=== PATIENT | female | born 1965 | race Hispanic/Latino ===

== ENCOUNTER 2019-08-07 10:38 | Inpatient (IN) | payer SELFPAY ==
[~2019-08-07] VITALS: Ht 157.5 cm; Wt 68.6 kg
[2019-08-07 11:19] LABS: BASOPHILS % (AUTO) 0.5 % (0.0-5.0); EOSINOPHILS % (AUTO) 1.2 % (0.0-8.0); HEMATOCRIT 41.2 % (36-48); LYMPHOCYTES % (AUTO) 37.6 % (21.0-51.0); MEAN CORPUSCULAR HGB CONC 31.8 g/dL (32.0-36.0); MEAN CORPUSCULAR VOLUME 84.9 fL (79-99); MONOCYTES % (AUTO) 6.3 % (3.0-13.0); NEUTROPHILS % (AUTO) 54.2 % (40.0-77.0); PLATELET COUNT (AUTO) 350 K/uL (130-400); RED BLOOD CELL COUNT(AUTO) 4.85 MIL/uL (4.00-5.50); RED CELL DISTRIBUTION WIDTH 18.5 % (11.0-15.5); WHITE BLOOD COUNT (AUTO) 5.7 K/uL (4.8-10.8)
[2019-08-07 11:24] LABS: CREATININE 0.7 mg/dL (0.5-1.5); POTASSIUM 3.7 mmol/L (3.5-5.1)
[2019-08-07 11:29] LABS: INR 0.95 (0.85-1.15); PARTIAL THROMBOPLASTIN TIME 28.9 SEC (26.3-35.5)
[2019-08-07 11:30] LABS: ALBUMIN 3.7 g/dL (3.5-5.0); BILIRUBIN,TOTAL 0.2 mg/dL (0.2-1.0); TOTAL PROTEIN, SERUM 7.9 g/dL (6.0-8.3)
[2019-08-07] MEDS ORDERED: SODIUM CHLORIDE 0.9% 1000ML 1,000 ML IV ONE ×2 (12:23→17:51)
[2019-08-07] MEDS ORDERED: ONDANSETRON HCL 4 MG/2 ML VIAL ONE (12:23)
[2019-08-07] MEDS ORDERED: MORPHINE SULFATE 4 MG/1ML SYG ONE (12:23)
[2019-08-07] MEDS ORDERED: MEPERIDINE-PF 25 MG/ML SYG ONE (14:05)
[2019-08-07] MEDS ORDERED: SODIUM CHLORIDE 0.9% 100 ML IV ONE (14:39)
[2019-08-07] MEDS: SODIUM CHLORIDE 0.9% 1000ML 1,000 ML IV SCH (16:30)
[2019-08-07] MEDS ORDERED: ACETAMINOPHEN 325 MG TAB PO PRN (16:30)
[2019-08-07] MEDS ORDERED: MORPHINE SULFATE 2 MG/ML 1ML SYG IVP PRN (16:30)
[2019-08-07] MEDS: PANTOPRAZOLE SODIUM 40 MG TABLET.DR PO SCH ×2 (17:00→21:00)
[2019-08-07 17:25] LABS: % IRON SATURATION 30.3 % (22-44)
[2019-08-07] MEDS ORDERED: ACETAMINOPHEN 325 MG TAB ONE (18:52)
[2019-08-07] MEDS ORDERED: LEVETIRACETAM 500 MG TABLET PO ONE (21:37)
[2019-08-07 21:57] LABS: APPEARANCE,URINE Cloudy (CLEAR); BILIRUBIN,URINE Negative (NEGATIVE); COLOR,URINE Dark Yellow (YELLOW); GLUCOSE, URINE (UA) Negative (NEGATIVE); KETONES,URINE Trace mg/dL (NEGATIVE); LEUKOCYTE ESTERASE ,URINE Trace (NEGATIVE); NITRATE,URINE Negative (NEGATIVE); OCCULT BLOOD,URINE Negative (NEGATIVE); PROTEIN,URINE Negative (NEGATIVE)
[2019-08-07 22:13] LABS: BACTERIA,URINE Few /HPF (None Seen); MUCUS,URINE Few LPF (None Seen); RBC,URINE 0-1 /HPF (0-1); SQUAMOUS EPITHELIAL CELL,UR 0-2 /HPF (0-2); WBC,URINE 0-1 /HPF (0-1)
[2019-08-07] MEDS ORDERED: MORPHINE SULFATE 2 MG/ML 1ML SYG ONE (23:06)
[2019-08-07 23:34] VITALS: BP 123/59
[2019-08-08] VITALS (7 sets, daily range): BP systolic 100–127; BP diastolic 58–78
--- NOTE | 2019-08-08 00:13 | NUR ---
PATIENT RECEIVED FROM ER, REPORT FROM MEENU HUSAIN. PATIENT WITH C/O SEVERE ABDOMINAL PAIN FOR 3 MONTHS. STATES SHE WAS TO F/U WITH [employer] BUT PAIN GOT GRADUALLY WORSE AND CAME TO E.R. DX CHOLELITHIASIS: PATIENT IS AAOX3, NO ACUTE DISTRESS AT THIS TIME. SHE RECEIVED MORPHINE 2 MG IV PRIOR TO ARRIVING TO FLOOR. PATIENT IS TO HAVE HIDA SCAN IN AM AND SHE IS AWARE OF NO NARCOTICS FOR AT LEAST 6 HOURS. PATIENT ORIENTED TO ROOM AND ENVIRONMENT, ADMISSION COMPLETED AND ASSESSMENT RECORDED. PATIENT IS TO REMAIN NPO. DR. THOMAS TO BE NOTIFIED TOMORROW IN AM [facility] CONSULT.
[2019-08-08] MEDS: SODIUM CHLORIDE 0.9% 1000ML 1,000 ML IV SCH ×2 (02:30→22:30)
[2019-08-08] MEDS: PANTOPRAZOLE SODIUM 40 MG TABLET.DR PO SCH ×2 (11:08→20:57)
[2019-08-08] MEDS: ONDANSETRON HCL 4 MG/2 ML VIAL IVP PRN ×2 (11:09→21:02)
[2019-08-08] MEDS: MORPHINE SULFATE 4 MG/1ML SYG IV PRN ×2 (11:09→18:06)
[2019-08-08] MEDS ORDERED: LEVE500T9 PO (16:51)
[2019-08-08] MEDS ORDERED: DULO20 PO (16:51)
[2019-08-08] MEDS ORDERED: LISI30TA4 PO (16:51)
[2019-08-08] MEDS ORDERED: FERS325 PO (16:51)
[2019-08-08] MEDS ORDERED: GABA-533 PO (16:51)
[2019-08-08] MEDS ORDERED: ZOLP5TAB8 PO (16:51)
--- NOTE | 2019-08-08 17:39 | NUR ---
TRANSFER REPORT CALLED TO [facility]; PT STATED UNDERSTANDING OF NEED TO TRANSFER; SHE SIGNED HER CONSENT PRIOR TO TRANSFER AND I SPOKE TO DR LEPE AND GOT ORDERS TO RESUME HOME MEDICATIONS
[2019-08-08] MEDS: FERROUS SULFATE 325 MG TABLET.DR PO SCH (20:57)
[2019-08-08] MEDS: ZOLPIDEM TARTRATE 5 MG TAB PO SCH (20:58)
[2019-08-08] MEDS: LEVETIRACETAM 500 MG PO SCH (20:58)
[2019-08-09] VITALS (25 sets, daily range): BP systolic 99–159; BP diastolic 56–92
[2019-08-09] MEDS: MORPHINE SULFATE 4 MG/1ML SYG IV PRN ×4 (01:46→22:09)
[2019-08-09] MEDS: KETOROLAC TROMETHAMINE 30MG/ML IV PRN ×3 (04:22→19:50)
[2019-08-09 04:36] LABS: BASOPHILS % (AUTO) 0.6 % (0.0-5.0); EOSINOPHILS % (AUTO) 2.2 % (0.0-8.0); HEMATOCRIT 37.8 % (36-48); LYMPHOCYTES % (AUTO) 38.1 % (21.0-51.0); MEAN CORPUSCULAR HEMOGLOBIN 27.3 pg (27.0-33.0); MEAN CORPUSCULAR VOLUME 88.3 fL (79-99); MONOCYTES % (AUTO) 6.4 % (3.0-13.0); NEUTROPHILS % (AUTO) 52.4 % (40.0-77.0); PLATELET COUNT (AUTO) 321 K/uL (130-400); RED BLOOD CELL COUNT(AUTO) 4.28 MIL/uL (4.00-5.50); RED CELL DISTRIBUTION WIDTH 18.4 % (11.0-15.5); WHITE BLOOD COUNT (AUTO) 6.4 K/uL (4.8-10.8)
[2019-08-09 04:42] LABS: CREATININE 0.6 mg/dL (0.5-1.5); MAGNESIUM 1.9 mg/dL (1.80-2.40); POTASSIUM 4.1 mmol/L (3.5-5.1)
[2019-08-09] MEDS: SODIUM CHLORIDE 0.9% 1000ML 1,000 ML IV SCH ×2 (06:39→19:50)
[2019-08-09] MEDS: LISINOPRIL 10 MG TABLET PO SCH (08:17)
[2019-08-09] MEDS: LEVETIRACETAM 500 MG PO SCH ×2 (08:18→21:12)
[2019-08-09] MEDS: ENOXAPARIN SODIUM 40 MG/0.4 ML SYRINGE SQ SCH (09:00)
[2019-08-09] MEDS: PANTOPRAZOLE SODIUM 40 MG TABLET.DR PO SCH ×2 (09:00→20:51)
[2019-08-09] MEDS: FERROUS SULFATE 325 MG TABLET.DR PO SCH ×3 (09:00→20:51)
--- NOTE | 2019-08-09 12:55 | NUR ---
PATIENT WAS TAKEN VIA BED TO PACU BY RODRIGUE ADAME AND ANOTHER NURSE FROM PACU. PATIENT STABLE BUT C/O STILL HAVING PAIN.
[2019-08-09] MEDS ORDERED: PROPOFOL 10 MG/ML 20ML VIAL IV ONE (13:17)
[2019-08-09] MEDS ORDERED: METOCLOPRAMIDE 10 MG/2 ML VIAL ONE (13:17)
[2019-08-09] MEDS ORDERED: ROCURONIUM 10MG/1ML SYR 10 MG/ML ML ONE (13:17)
[2019-08-09] MEDS ORDERED: MIDAZOLAM HCL 1 MG/ML 2ML VIAL ONE (13:17)
[2019-08-09] MEDS ORDERED: LIDOCAINE PF 2% 5ML ABBOJECT ONE (13:17)
[2019-08-09] MEDS ORDERED: FENTANYL CITRATE PF 50 MCG/1 ML 2ML VIAL ONE ×4 (13:18→15:49)
[2019-08-09] MEDS ORDERED: BUPIVACAINE/PF 0.5% 30ML VIAL ONE (13:32)
[2019-08-09] MEDS ORDERED: MEPERIDINE-PF 25 MG/ML SYG ONE ×2 (14:40→14:44)
[2019-08-09] MEDS: ONDANSETRON HCL 4 MG/2 ML VIAL IVP PRN (15:00)
--- NOTE | 2019-08-09 16:25 | NUR ---
PATIENT BACK FROM PACU AND IS STABLE. ON ASSESSMENT NOTED PATIENT HAD O2 AT 2L PER NC AND 4 BANDAIDS TO INCISIONAL SITESON ABDOMEN. BANDAIDS ARE DRY AND INTACT AND 02 WAS REMOVED BY PATIENT'S REQUEST AND ALSO NEEDING TO GO TO BATHROOM TO VOID. AFTER ASSESSMENT ASSISTED PT TO BATHROOM AND WAS ABLE TO VOID 300CC OF CLEAR YELLOW URINE.
[2019-08-09] MEDS: GABAPENTIN 100 MG CAPSULE PO SCH (17:06)
--- NOTE | 2019-08-09 19:15 | NUR ---
REPORT GIVEN TO RODRIGUE OLIVER AND PATIENT CARE TRANSFERED AT THIS TIME. PATIENT IS STABLE.
[2019-08-09] MEDS: ZOLPIDEM TARTRATE 5 MG TAB PO SCH (20:51)
[2019-08-09] MEDS: CEFTRIAXONE SODIUM 1 GM IVP SCH (21:10)
[2019-08-09 21:18] LABS: BILIRUBIN,URINE Negative (NEGATIVE); COLOR,URINE Yellow (YELLOW); GLUCOSE, URINE (UA) >=1000 mg/dL (NEGATIVE); KETONES,URINE Negative (NEGATIVE); LEUKOCYTE ESTERASE ,URINE Negative (NEGATIVE); NITRATE,URINE Negative (NEGATIVE); OCCULT BLOOD,URINE Negative (NEGATIVE); PH,URINE 6.5 (5.0-8.0); PROTEIN,URINE Negative (NEGATIVE)
[2019-08-09 21:19] LABS: APPEARANCE,URINE CLEAR (CLEAR)
[2019-08-09 21:53] LABS: RBC,URINE 0-1 /HPF (0-1); WBC,URINE 0-1 /HPF (0-1)
[2019-08-09 21:54] LABS: BACTERIA,URINE None Seen /HPF (None Seen); SQUAMOUS EPITHELIAL CELL,UR None Seen /HPF (0-2)
[2019-08-10] VITALS (12 sets, daily range): BP systolic 100–150; BP diastolic 34–71
[2019-08-10] MEDS: KETOROLAC TROMETHAMINE 30MG/ML IV PRN ×3 (02:42→17:54)
[2019-08-10 04:57] LABS: HEMATOCRIT 33.5 % (36-48); MEAN CORPUSCULAR HEMOGLOBIN 27.3 pg (27.0-33.0); MEAN CORPUSCULAR HGB CONC 31.6 g/dL (32.0-36.0); MEAN CORPUSCULAR VOLUME 86.3 fL (79-99); PLATELET COUNT (AUTO) 258 K/uL (130-400); RED BLOOD CELL COUNT(AUTO) 3.88 MIL/uL (4.00-5.50); RED CELL DISTRIBUTION WIDTH 17.6 % (11.0-15.5); WHITE BLOOD COUNT (AUTO) 10.1 K/uL (4.8-10.8)
[2019-08-10 05:37] LABS: ALBUMIN 2.7 g/dL (3.5-5.0); BILIRUBIN,TOTAL 0.2 mg/dL (0.2-1.0); CREATININE 0.8 mg/dL (0.5-1.5); POTASSIUM 3.5 mmol/L (3.5-5.1); TOTAL PROTEIN, SERUM 6.4 g/dL (6.0-8.3)
[2019-08-10] MEDS: MORPHINE SULFATE 4 MG/1ML SYG IV PRN ×2 (05:57→12:24)
[2019-08-10] MEDS: SODIUM CHLORIDE 0.9% 1000ML 1,000 ML IV SCH ×2 (05:58→16:44)
[2019-08-10] MEDS: LEVETIRACETAM 500 MG PO SCH ×2 (09:00→21:27)
[2019-08-10] MEDS: ENOXAPARIN SODIUM 40 MG/0.4 ML SYRINGE SQ SCH (09:38)
[2019-08-10] MEDS: GABAPENTIN 100 MG CAPSULE PO SCH (09:39)
[2019-08-10] MEDS: LISINOPRIL 10 MG TABLET PO SCH (09:39)
[2019-08-10] MEDS: FERROUS SULFATE 325 MG TABLET.DR PO SCH ×3 (09:39→21:24)
[2019-08-10] MEDS: PANTOPRAZOLE SODIUM 40 MG TABLET.DR PO SCH ×2 (09:39→21:24)
[2019-08-10] MEDS: DOCUSATE SODIUM 100 MG CAP PO SCH ×2 (10:38→21:24)
[2019-08-10] MEDS: SIMETHICONE 80 MG TAB.CHEW PO PRN ×2 (10:38→21:24)
[2019-08-10] MEDS: SENNOSIDES 8.6 MG TABLET PO SCH ×2 (10:38→21:43)
[2019-08-10] MEDS ORDERED: BISACODYL 10 MG SUPP.RECT RC PRN (15:00)
--- NOTE | 2019-08-10 18:10 | NUR ---
pt is cleared to go home as per Dr. Rg- surgeon, and hospitalist . Started giving discharge instructions, and informed and no prescription was given for her, pt started crying and she said she is still in a lot of pain, and not comfortable going home. Notified MANAGER LSW radha and ordered to cancel discharge Addendum: 08/10/19 at 1937 by LUIS WILCOX RN Amended: Links added.
[2019-08-10 18:35] LABS: ALBUMIN 3.2 g/dL (3.5-5.0); BILIRUBIN,DIRECT 0.1 mg/dL (0.0-0.3); BILIRUBIN,TOTAL 0.3 mg/dL (0.2-1.0); TOTAL PROTEIN, SERUM 7.3 g/dL (6.0-8.3)
[2019-08-10] MEDS ORDERED: TRAMADOL HCL 50 MG TABLET PO PRN (19:15)
[2019-08-10] MEDS: CEFTRIAXONE SODIUM 1 GM IVP SCH (21:21)
[2019-08-10] MEDS: ZOLPIDEM TARTRATE 5 MG TAB PO SCH (21:24)
[2019-08-10] MEDS: TRAMADOL HCL 50 MG TABLET PO PRN (21:26)
--- NOTE | 2019-08-10 23:45 | NUR ---
Communication: Ly Gold NP called to verify the Discharges order received order patient can stay tonight to transition IV pain medication to pills.
[2019-08-11] MEDS: SODIUM CHLORIDE 0.9% 1000ML 1,000 ML IV SCH (02:47)
[2019-08-11 03:26] VITALS: BP 110/69
[2019-08-11] MEDS: TRAMADOL HCL 50 MG TABLET PO PRN (06:11)
[2019-08-11 07:25] VITALS: BP 107/64
[2019-08-11] MEDS: PANTOPRAZOLE SODIUM 40 MG TABLET.DR PO SCH (08:38)
[2019-08-11] MEDS: GABAPENTIN 100 MG CAPSULE PO SCH (08:38)
[2019-08-11] MEDS: LISINOPRIL 10 MG TABLET PO SCH ×2 (08:39→08:47)
[2019-08-11] MEDS: SENNOSIDES 8.6 MG TABLET PO SCH (08:39)
[2019-08-11] MEDS: DOCUSATE SODIUM 100 MG CAP PO SCH (08:40)
[2019-08-11] MEDS: LEVETIRACETAM 500 MG PO SCH (08:41)
[2019-08-11] MEDS: FERROUS SULFATE 325 MG TABLET.DR PO SCH (08:41)
[2019-08-11] MEDS: ENOXAPARIN SODIUM 40 MG/0.4 ML SYRINGE SQ SCH (08:57)
--- NOTE | 2019-08-11 09:50 | NUR ---
ROUNDING SOFIA PUTNAM NP AT BEDSIDE TO ASSESS AND TALK TO PT. NEW ORDERS RECEIVED FOR DISCHARGE.
--- NOTE | 2019-08-11 11:00 | NUR ---
DISCHARGE PT LEFT UNIT VIA WHEELCHAIR ACCOMPANIED BY SPOUSE. DENIED PAIN AND HAD NO COMPLAINTS.
== END 2019-08-11 11:00 | disposition home or self-care (01) | DRG 419 ==
LOC: EDH 10:38 → EDHIP 16:06 → OBSVTOIN 16:06 → 4AH 20:47 → WSH 08-08 17:50
PROVIDERS: ADMIT Internal Medicine; ATTEND Internal Medicine
PROC: 0FT44ZZ Resection of Gallbladder, Percutaneous Endoscopic Approach (ICD-10-PCS; principal; 2019-08-09 13:29)
DX: K80.10 Calculus of gallbladder with chronic cholecystitis without obstruction (principal); K82.8 Other specified diseases of gallbladder; G40.909 Epilepsy, unspecified, not intractable, without status epilepticus; Z98.84 Bariatric surgery status; I10 Essential (primary) hypertension; G47.00 Insomnia, unspecified; F32.9 Major depressive disorder, single episode, unspecified
CPT/HCPCS: 36415; 74176; 76705; 78226; 80048; 80053; 80076; 81001; 82150; 82270; 82550; 83540; 83550; 83690; 83735; 84100; 84145; 84484; 85025; 85027; 85610; 85730; 87088; 88304; 93005; A9537; G0378; J0696; J1650; J1885; J2001; J2175; J2250; J2270; J2405; J2704; J2765; J3010; J3490; J7030; J7120